=== PATIENT | female | born 1955 | race Caucasian/White ===

== ENCOUNTER → 2020-12-28 | Outpatient (CLI) | payer BC, OTHER ==
[~2020-12-28] VITALS: Ht 10.2 cm; Wt 65.8 kg
[~2020-12-28] MED LIST: AMITRIPTYLINE H25 M2 PO; BACLOFEN 10MG T10 MG PO; FLEXERIL PO; FOSAMAX 70 MG T70 MG PO; HYDROCODON-ACE1 EAC7 PO
[2020-12-28 08:50] VITALS: BP 140/88
--- NOTE | 2020-12-28 09:11 | NUR ---
Pain Clinic Assessment: 1. History of Osteoarthritis: CERVICAL SPINE History of Rheumatoid Arthritis: NO 2. Height: 5 ft. 4 in. 10.2 cm. Weight: 145.0 lb. oz. 65.772 kg. Patient's BMI: 6321.8 3. Vital Signs: BP: 140/88 Pulse: 95 Resp: 16 Temp: 02 Sat: 99 ECG Mon: 4. Pain Intensity: 6 TO 8 5. Fall Risk: Dizziness: N Needs help standing or walking: N Fallen in the last 3 months: N Fall risk comments: 6. Patient on Blood Thinner: None 7. History of Hypertension: N 8. Opioid Therapy greater than 6 weeks: N Opiate Contract Signed: 9. Risk Assessment Tool Provided: LOW-1 10. Functional Assessment Tool: 55/70 11. Recreational Drug Use: Never Drug Type: Tobacco Use: Never Smoker Tobacco Type: Amount or Packs/day: How Many Years: Alcohol Use: No Frequency: Quant:
== END ==
LOC: PAIN 08:23
PROVIDERS: ATTEND Anesthesiology Pain Medicine
DX: M54.12 Radiculopathy, cervical region (principal); M94.0 Chondrocostal junction syndrome [Tietze]; M85.88 Other specified disorders of bone density and structure, other site; M25.561 Pain in right knee; R13.13 Dysphagia, pharyngeal phase; M25.511 Pain in right shoulder; M79.601 Pain in right arm; Z79.899 Other long term (current) drug therapy; Z79.891 Long term (current) use of opiate analgesic

== ENCOUNTER → 2021-01-11 | Outpatient (CLI) | payer BC, OTHER ==
[~2021-01-11] VITALS: Ht 162.6 cm; Wt 68.9 kg
[2021-01-11 08:44] VITALS: BP 133/81
--- NOTE | 2021-01-11 08:52 | NUR ---
Pain Clinic Assessment: 1. History of Osteoarthritis: CERVICAL SPINE History of Rheumatoid Arthritis: NO 2. Height: 5 ft. 4 in. 162.6 cm. Weight: 151.8 lb. oz. 68.856 kg. Patient's BMI: 26.0 3. Vital Signs: BP: 133/81 Pulse: 74 Resp: 14 Temp: 02 Sat: 100 ECG Mon: 4. Pain Intensity: 5 5. Fall Risk: Dizziness: N Needs help standing or walking: N Fallen in the last 3 months: N Fall risk comments: 6. Patient on Blood Thinner: None 7. History of Hypertension: N 8. Opioid Therapy greater than 6 weeks: N Opiate Contract Signed: 9. Risk Assessment Tool Provided: LOW-1 10. Functional Assessment Tool: 55/70 11. Recreational Drug Use: Never Drug Type: Tobacco Use: Never Smoker Tobacco Type: Amount or Packs/day: How Many Years: Alcohol Use: No Frequency: Quant:
== END | disposition home or self-care (01) ==
LOC: PAIN 06:59
PROVIDERS: ATTEND Anesthesiology Pain Medicine
DX: M54.12 Radiculopathy, cervical region (principal); G89.29 Other chronic pain; M85.80 Other specified disorders of bone density and structure, unspecified site; M19.90 Unspecified osteoarthritis, unspecified site; Z98.890 Other specified postprocedural states; Z79.899 Other long term (current) drug therapy